=== PATIENT | male | born 1945 | race Caucasian/White ===

== ENCOUNTER 2020-06-14 08:55 | Outpatient (CLI) | payer MEDICARE, BC, SELFPAY ==
--- NOTE | ~2020-06-14 | XR_ITS ---
XR lumbar spine 2-3V DATE: 06/14/2020 09:16 INDICATION: Acute bilateral lower back pain TECHNIQUE: AP, lateral, coned lateral lumbosacral views COMPARISON: None FINDINGS: Normal alignment of the lumbar spine. No fracture or bone destruction. The lumbar pedicles are intact. Moderate degenerative disc disease at L1-2, L2-3, L3-4. Severe degenerative disease at L4-5 and L5-S1. The sacroiliac joints appear normal. IMPRESSION: Multilevel degenerative disc disease Reviewed, dictated and finalized at location A.
== END 2020-06-14 08:56 | disposition home or self-care (01) ==
LOC: ANHIMG 09:06
PROVIDERS: PCP Internal Medicine; Visit Provider Internal Medicine
DX: M51.36 Other intervertebral disc degeneration, lumbar region (principal)
CPT/HCPCS: 72100

== ENCOUNTER 2021-08-21 01:32 | Day surgery (SDC) | payer MEDICARE, BC, SELFPAY ==
[2021-08-20 12:12] VITALS: BMI 24.4
[2021-08-21] VITALS (9 sets, daily range): BP systolic 82–128; BP diastolic 49–79; PULSE 56–88; RESP 13–17; TEMP 36.5; O2SAT 97–100
--- NOTE | 2021-08-21 08:30 | ECG_ITS ---
Measurements Intervals [place] Rate: 59 P: 40 FL: 183 QRS: 21 QRSD: 100 T: 10 QT: 468 QTc: 466 Interpretive Statements SINUS BRADYCARDIA ATRIAL PREMATURE COMPLEX BORDERLINE T WAVE ABNORMALITY- INFERIOR LEADS BORDERLINE ECG Electronically Signed On 08-21-2021 10:58:46 BALANCE RECESSER by Destin Tatum D.O.
--- NOTE | 2021-08-21 08:30 | ECG_ITS ---
Measurements Intervals [place] Rate: 76 P: RI: 0 QRS: 35 QRSD: 95 T: 15 QT: 421 QTc: 475 Interpretive Statements ATRIAL FIBRILLATION VENTRICULAR PREMATURE COMPLEX BASELINE ARTIFACT- III ABNORMAL ECG Electronically Signed On 08-21-2021 9:07:33 DISTRIBUTION OPERATIONS SUPERVISOR by Destin Tatum D.O.
[2021-08-21 09:39] LABS: Anion Gap 9 mmol/L (8-16); Blood Urea Nitrogen 19 mg/dL (9-20); Calcium 9.3 mg/dL (8.4-10.2); Carbon Dioxide 27 mmol/L (22-30); Chloride 105 mmol/L (98-107); Estimated CRCL calculation 56 ml/min; Estimated Glomerular Filt Rate > 60; Glucose 91 mg/dL (65-110); Magnesium 2.1 mg/dL (1.6-2.3); Sodium 141 mmol/L (137-145)
[2021-08-21] MEDS: SODIUM CHLORIDE 0.9% IV 1,000 ML 30 ML IV CONT (09:42)
--- NOTE | 2021-08-21 10:19 | WPDMODSED ---
Moderate Sedation Note-Pt Data Patient Data Diagnosis: Recurrent atrial fibrillation Present Complaint: No complaints Procedure to be performed/Plan: DC cardioversion Allergies Allergy/AdvReac Type Severity Reaction Status Date / Time No Known Allergies Allergy Unverified 04/30/18 07:14 Home Medications Medication Instructions Recorded Confirmed Type levothyroxine 88 mcg tablet 88 mcg PO DAILY #90 tablet 07/21/19 08/21/21 Rx loteprednol etabonate drp 08/20/21 History omega 8-vec-cjo-fish oil [Fish Oil] 1,200 cap PO BID 08/20/21 08/20/21 History rivaroxaban [Xarelto] 20 mg PO DAILY 08/20/21 08/21/21 History simvastatin 20 mg PO DAILY 08/20/21 08/21/21 History sotalol 80 mg PO BID 08/20/21 08/21/21 History vit C,K-Am-zycyx-lutein-zeaxan 1 tablet PO BID 08/20/21 08/20/21 History [PreserVision AREDS-2] Current Medications: Active Medications Sodium Chloride (Normal Saline Iv) 1,000 mls @ 30 mls/hr IV CONT .Q24H LAXMI Last Admin: 08/21/21 09:42 Dose: 30 mls/hr Documented by: Sedation/Anesthesia: No previous sedation/anesthesia problems (including family history). [facility] Family History Family History (Updated 04/13/14 @ 07:13 by DOCTOR UNKNOWN) Mother Family history of Alzheimer's disease Father Family history of heart disease in male family member before age 55 Social History Social History Smoking status: Never smoker Alcohol intake: never Substance use: never Living arrangements: with family Spiritual care concerns: No Mod Sed Physical Exam Physical Exam Pre Procedural Exam: Normal: Appearance, Neck, Throat, Airway, Lungs, Heart Size, Heart Rate, Neuro Exam and Extremities and Variation: Heart Rhythm (Irregularly irregular) Hours since solid foods: 12 Hours since liquid intake: 12 Mallampati Classification: class II Internal Medicine - PN: Obj Da Vital Signs Vital Signs: Vital Signs - 24 hr 08/21/21 09:35 Temperature 36.5 C Pulse Rate 83 Respiratory Rate 13 Blood Pressure 120/79 Pulse Oximetry 99 Meds/Results Medications: Active Medications Generic Name Dose Route Start Last Admin Trade Name Freq PRN Reason Stop Dose Admin Sodium Chloride 1,000 mls @ 30 mls/hr 08/21/21 08:30 08/21/21 09:42 Normal Saline Iv IV CONT 30 mls/hr .Q24H LAXMI Administration Labs CBC & Chem 7: 08/21/21 09:09 Labs: Laboratory Results - last 24 hr 08/21/21 09:09 Sodium 141 Potassium 4.0 Chloride 105 Carbon Dioxide 27 Anion Gap 9 BUN 19 Creatinine 1.00 Estim Creat Clear Calc 56 Estimated GFR > 60 Glucose 91 Calcium 9.3 Magnesium 2.1 ASA Classification/Sedation ASA Classification/Sedation ASA Class: II Emergent: No Risks: Risks, benefits and alternatives explained and patient/family accepted plan for sedation. Patient re-evaluated immediately prior to sedation.
--- NOTE | 2021-08-21 10:38 | P.PCNCC_ITS ---
Cardiac Cath Procedure Note Date of procedure:: 08/21/21 Performing physician:: Omar Hammonds MD Indication:: Recurrent atrial fibrillation Brief clinical history:: This is a 76-year-old man with a history of atrial fibrillation maintained in sinus rhythm with sotalol. During recent office follow-up he was found to be in recurrent AFib. Echocardiogram did not show significant atrial dilation or structural abnormalities. He is chronically anticoagulated with Xarelto. Because of the AFib recurrence an attempt to restoring sinus rhythm electrically was recommended and scheduled for this morning. Procedure Procedure performed:: DC cardioversion Sedation/Medication given:: IV propofol in aliquots total dosage of 70 mg Estimated blood loss:: No blood loss Procedure note:: Patient was brought to the blood bank laboratory technician in the postabsorptive state he was placed in the supine position with defibrillator patches in the AP position. He was then sedated using the peripheral IV in the left upper e xtremity with using propofol and aliquots a total dosage of 70 mg was given. One synchronized countershock at 200 joules was then administered which restored sinus bradycardia. Findings:: As above Conclusion:: Successful uncomplicated DC cardioversion of atrial fib back to sinus rhythm/sinus bradycardia using 200 joules x1 shock Omar Hammonds MD [facility]
--- NOTE | 2021-08-21 11:29 | PC.NURSE ---
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
== END 2021-08-21 11:50 | disposition home or self-care (01) ==
PROVIDERS: PCP Internal Medicine; Visit Provider Specialist
PROC: 5A2204Z Restoration of Cardiac Rhythm, Single (ICD-10-PCS; principal; 2021-08-21 10:00)
DX: I48.0 Paroxysmal atrial fibrillation (principal); Z79.01 Long term (current) use of anticoagulants
CPT/HCPCS: 36415; 80048; 83735; 92960; J2704

== ENCOUNTER 2021-12-23 15:09 | Emergency (ER) | payer MEDICARE, BC, SELFPAY ==
[2021-12-23 16:02] VITALS: BP 119/62; PULSE 99; RESP 18; TEMP 37.5; O2SAT 98
--- NOTE | 2021-12-23 16:54 | ED.WOUNDLAC ---
HPI - Wound/Laceration General Chief Complaint: Wound/Laceration Stated Complaint: bleeding wound Time Seen by Provider: 12/23/21 16:46 History of Present Illness HPI narrative: 76-year-old male presents to the emergency room for evaluation of a bleeding wound to his right arm patient states that he is on Xarelto. Patient states that he removed a scab from his right bicep 5 days ago, and the wound has been bleeding intermittently ever since. Related Data Home Medications Medication Instructions Recorded Confirmed PreserVision AREDS-2 1 tablet PO BID 08/20/21 08/20/21 Xarelto 20 mg PO DAILY 08/20/21 08/21/21 loteprednol etabonate drp 08/20/21 omega 7-vjc-edl-fish oil [Fish Oil] 1,200 cap PO BID 08/20/21 08/20/21 simvastatin 20 mg PO DAILY 08/20/21 08/21/21 sotalol 80 mg PO BID 08/20/21 08/21/21 Allergies Allergy/AdvReac Type Severity Reaction Status Date / Time No Known Allergies Allergy Unverified 12/23/21 16:06 Review of Systems Review of Systems: CONSTITUTIONAL: Denies fever, chills, or sweats. EYES: Denies visual changes, redness, or discharge. ENT: Denies rhinorrhea, congestion, sore throat, or otalgia. CARDIOVASCULAR: Denies chest pain, palpitations, or edema. RESPIRATORY: Denies cough or dyspnea. GASTROINTESTINAL: Denies abdominal pain, nausea, vomiting, or diarrhea. GENITOURINARY: Denies dysuria or hematuria. SKIN: Bleeding wound to right arm MUSCULOSKELETAL: Denies back pain, joint pain, or myalgia. NEUROLOGIC: Denies headache, numbness, dizziness, or weakness. PSYCHIATRIC: Denies anxiety or depression. PMFSH Family History Family History Mother Family history of Alzheimer's disease Father Family history of heart disease in male family member before age 55 Social History Social History Smoking status: Never smoker Alcohol intake: never Substance use: never Spiritual care concerns: No Exam Narrative: GENERAL: Well-appearing, well-nourished, and in no acute distress. HEAD: Normocephalic, atraumatic. EYES: PERRLA and EOMI. ENT: Nares clear, no rhinorrhea or epistaxis. Mucous membranes moist. Oropharynx without tonsillar hypertrophy exudate or other lesions. Bilateral TMs [place] nonbulging NECK: Supple. No adenopathy or masses. No carotid bruits or JVD CHEST: Clear to auscultation. No respiratory distress. No wheezes rales or rhonchi HEART: Regular rate and rhythm. No murmur heard. Normal peripheral pulses. ABDOMEN: Soft, nontender, nondistended, normal active bowel sounds. EXTREMITIES: Normal range of motion. No edema. SKIN: 2 mm bleeding wound to the right upper extremity NEURO: No focal deficits. Alert and oriented x3. PSYCH: Normal mood and affect. Course Course Emergency Course: Surgicel applied to wound, and dressed with gauze and [place]. Patient tolerated procedure well. Patient given instructions to remove the Surgicel in approximately 3 days. Vital Signs Vital signs: Vital Signs Temperature 37.5 C 12/23/21 16:02 Pulse Rate 99 12/23/21 16:02 Respiratory Rate 18 12/23/21 16:02 Blood Pressure 119/62 12/23/21 16:02 Pulse Oximetry 98 12/23/21 16:02 Temperature 37.5 C 12/23/21 16:02 Pulse Rate 99 12/23/21 16:02 Respiratory Rate 18 12/23/21 16:02 Blood Pressure 119/62 12/23/21 16:02 Pulse Oximetry 98 12/23/21 16:02 Discharge Plan Discharge Clinical Impression: Avulsion of skin Patient Disposition: Home, Self-Care Condition: Stable Instructions: Antibiotic Form Prescriptions: No Action sotalol 80 mg tablet 80 mg PO BID RF: 0 simvastatin 20 mg tablet 20 mg PO DAILY RF: 0 loteprednol etabonate 0.5 % drops,suspension RF: 0 omega 1-lgx-rxq-fish oil [Fish Oil] 1,200 (144-216) mg Capsule 1,200 cap PO BID RF: 0 Xarelto 20 mg tablet 20 mg PO DAILY RF: 0 PreserVision AREDS-2 25
[2021-12-23] MEDS: CELLULOSE OXIDIZED 2 x 14 INCH 1 PKT XX (17:18)
== END 2021-12-23 17:58 | disposition home or self-care (01) ==
LOC: ANHED 17:00
PROVIDERS: Emergency Provider Nurse Practitioner Family; PCP Internal Medicine
DX: S41.101A Unspecified open wound of right upper arm, initial encounter (principal); I48.91 Unspecified atrial fibrillation; Z79.01 Long term (current) use of anticoagulants; X58.XXXA Exposure to other specified factors, initial encounter
CPT/HCPCS: 99282

== ENCOUNTER 2022-10-09 10:43 | Emergency (ER) | payer MEDICARE, BC, SELFPAY ==
--- NOTE | ~2022-10-09 | CT_ITS ---
EXAMINATION: CT abdomen pelvis wo con DATE: 10/09/2022 11:56 INDICATION: Hematuria. Left lower quadrant pain. TECHNIQUE: Computed tomography (CT) of the abdomen and pelvis was performed without intravenous contr ast. The dose-length product was 221.15 mGy-cm. Automated exposure control and iterative reconstructi on technique were employed. COMPARISON: CT dated 12/29/2011. FINDINGS: Borderline heart size. No significant pleural or pericardial effusion. There is calcified g ranulomas of the spleen. There is an accessory splenule. The liver, pancreas, adrenal glands and righ t kidney are unremarkable. There is a 3 mm nonobstructing left renal stone. There is a 1.9 cm left re nal cyst. Gallbladder is present. Nonobstructive bowel gas pattern. No free air or free fluid. No ure teral stones or hydronephrosis. There is a retroaortic left renal vein. Mild atherosclerosis of the a gloria without aneurysm. Colonic diverticulosis without evidence for diverticulitis. There is moderate lumbar spondylosis. IMPRESSION: 1. Nonobstructing 3 mm left renal stone. Reviewed, dictated and finalized at location L. IFIED HAND THERAPIST
[2022-10-09 11:02] VITALS: BP 109/84; PULSE 92; RESP 16; TEMP 36.9; O2SAT 98
--- NOTE | 2022-10-09 11:17 | ED.MALEGU ---
HPI - Male Genitourinary General Chief complaint: Urogenital-Male Stated complaint: hematuria Time Seen by Provider: 10/09/22 11:17 Source: patient Mode of arrival: ambulatory Limitations: no limitations History of Present Illness HPI Narrative: Patient is a 77-year-old male with a history of hypertension, hyperlipidemia, atrial fibrillation on chronic anticoagulation, nephrolithiasis, presenting for evaluation of left flank pain. Pain in the left flank has been intermittent in nature over the past 4 months. Patient initially thought the pain was musculoskeletal secondary to some heavy lifting and bending that he does on a daily basis. Patient denies any current flank pain or abdominal pain today. Patient states that he started to have bloody urine yesterday which has cleared this morning. Patient denies any fever, chills, dysuria. He denies urinary frequency or hesitancy. He denies abdominal distention or suprapubic pressure. Patient denies lightheadedness, dizziness or dyspnea. Related Data Home Medications Medication Instructions Recorded Confirmed loteprednol etabonate 0.5 % eye drp 08/20/21 drops,suspension omega 2-kbq-gzz-fish oil 1,200 mg 1,200 cap PO BID 08/20/21 08/20/21 (144 mg-216 mg) capsule (Fish Oil) rivaroxaban 20 mg tablet (Xarelto) 20 mg PO DAILY 08/20/21 08/21/21 simvastatin 20 mg tablet 20 mg PO DAILY 08/20/21 08/21/21 sotalol 80 mg tablet 80 mg PO BID 08/20/21 08/21/21 vit C 250 mg-vit E 90 mg-zinc 40 1 tablet PO BID 08/20/21 08/20/21 mg-copper 1 gi-yqwfdb-lmyvlb capsule (PreserVision AREDS-2) Allergies Allergy/AdvReac Type Severity Reaction Status Date / Time No Known Allergies Allergy Unverified 12/23/21 16:06 Review of Systems Review of Systems: CONSTITUTIONAL: Denies fever, chills, or sweats. ENT: Denies rhinorrhea, congestion, sore throat, or otalgia. CARDIOVASCULAR: Denies chest pain, palpitations, or edema. RESPIRATORY: Denies cough or dyspnea. GASTROINTESTINAL: Denies current abdominal pain, nausea, vomiting, or diarrhea. GENITOURINARY: Denies dysuria, reports hematuria SKIN: Denies rash or itching. MUSCULOSKELETAL: Denies back pain, joint pain, or myalgia. NEUROLOGIC: Denies headache, numbness, or weakness. [facility] Family History Family History Mother Family history of Alzheimer's disease Father Family history of heart disease in male family member before age 55 Social History Social History Smoking status: Never smoker Alcohol intake: never Substance use: never Living arrangements: with family Spiritual care concerns: No Exam Narrative: GENERAL: Awake, alert, conversant HEAD: Normocephalic, atraumatic. EYES: PERRLA and EOMI. ENT: Nares clear, no rhinorrhea or epistaxis. Mucous membranes moist. NECK: Supple. CHEST: No respiratory distress, breathing even and non labored HEART: Regular rate, sinus rhythm ABDOMEN:Non distended, non tender throughout, no reproducible flank tenderness bilaterally. No left lower quadrant tenderness on exam. No rebound, rigidity or guarding. EXTREMITIES: Normal range of motion. No edema. SKIN: Warm, dry, no rash. NEURO:No focal deficits. Alert and oriented x3 Course Vital Signs Vital signs: Vital Signs Temperature 36.9 C 10/09/22 11:02 Pulse Rate 92 10/09/22 11:02 Respiratory Rate 16 10/09/22 11:02 Blood Pressure 109/84 10/09/22 11:02 Pulse Oximetry 98 10/09/22 11:02 Oxygen Delivery Room Air 10/09/22 11:02 Temperature 36.9 C 10/09/22 11:02 Pulse Rate 92 10/09/22 11:02 Respiratory Rate 16 10/09/22 11:02 Blood Pressure 109/84 10/09/22 11:02 Pulse Oximetry 98 10/09/22 11:02 Oxygen Delivery Room Air 10/09/22 11:02 MDM - Male Genitourinary MDM Narrative Medical decision making narrative: Medical decision making narrative: -Presentation: Patient presenting
[2022-10-09] MEDS: SODIUM CHLORIDE 0.9% IV 1,000 ML 999 ML IV CONT (11:33)
[2022-10-09 11:52] LABS: Appearance Urine Slightly Cloudy (Clear); Bilirubin Urine Negative (Negative); Blood Urine 3+ (Negative); Color Urine Yellow (Yellow); Glucose Urine UA Negative (Negative); Ketones Urine Negative (Negative); Leukocyte Esterase Ur Negative LEU/UL (Negative); Nitrate Urine Negative (Negative); Protein Urine Trace mg/dL (Negative); Specific Grav Ur 1.025 (1.001-1.035); Urobilinogen Urine 0.2 mg/dL (<2.0); pH Urine 5.5 (5.0-9.0)
[2022-10-09 11:54] LABS: Basophils Absolute Auto 0.1 K/mm3 (0.0-0.1); Basophils Percent Auto 0.9 % (0.2-1.2); Eosinophils Absolute Auto 0.3 K/mm3 (0-0.3); Eosinophils Percent Auto 3.1 % (0-4.4); Hematocrit 48.2 % (42.0-52.0); Hemoglobin 16.2 g/dL (14.0-18.0); Immature Granulocyte Absolute 0.04 K/mm3 (0.00-0.031); Immature Granulocyte Percent A 0.5 % (0-0.5); Lymphocytes Absolute Auto 1.82 K/mm3 (0.9-3.2); Lymphocytes Percent Auto 20.7 % (18.3-44.2); Mean Corpuscular HGB Conc 33.6 g/dl (32-36); Mean Corpuscular Hemoglobin 32.3 pg (26-34); Mean Platelet Volume 9.4 fl (7.4-10.4); Monocytes Absolute Auto 1.1 K/mm3 (0.1-0.6); Monocytes Percent Auto 12.3 % (2.6-8.5); Neutrophils Absolute Auto 5.5 K/mm3 (1.3-6.7); Neutrophils Percent Auto 62.5 % (45.5-73.1); Platelet Count Result 167 k/mm3 (150-375); Red Blood Count 5.02 M/mm3 (4.6-6.20); Red Cell Distribution Width 14.2 % (11.5-14.5); White Blood Count 8.8 K/mm3 (4.5-10.0)
[2022-10-09 12:01] LABS: Budding Yeast Urine Present /hpf; Mucus Urine Rare /lpf; RBC Urine >75 /hpf (0-2); Squamous Epithelial Cell Urine Rare /hpf (Few)
[2022-10-09 12:06] LABS: Alanine Aminotransferase 24 U/L (6-50); Albumin Level 4.6 g/dL (3.5-5.1); Alkaline Phosphatase 73 U/L (38-126); Anion Gap 8 mmol/L (8-16); Aspartate Amino Transferase 34 U/L (17-59); Bilirubin,Total 1.2 mg/dL (0.2-1.3); Blood Urea Nitrogen 22 mg/dL (9-20); Calcium 8.9 mg/dL (8.4-10.2); Carbon Dioxide 24 mmol/L (22-30); Chloride 108 mmol/L (98-107); Estimated CRCL calculation 67 ml/min; Estimated Glomerular Filt Rate > 60; Glucose 97 mg/dL (65-110); Lipase 316 U/L (23-300); Potassium 4.3 mmol/L (3.4-5.0); Sodium 140 mmol/L (137-145)
[2022-10-09 12:23] LABS: Add Urine Microscopic? YES
== END 2022-10-09 13:37 | disposition home or self-care (01) ==
PROVIDERS: Emergency Provider Emergency Medicine; PCP Internal Medicine
DX: N20.0 Calculus of kidney (principal); R31.9 Hematuria, unspecified; I10 Essential (primary) hypertension; E78.5 Hyperlipidemia, unspecified; I48.20 Chronic atrial fibrillation, unspecified; Z79.01 Long term (current) use of anticoagulants; Z87.442 Personal history of urinary calculi
CPT/HCPCS: 36415; 74176; 80053; 81001; 83690; 85025; 96360; 99284; J7030

== ENCOUNTER 2023-09-21 00:46 | Day surgery (SDC) | payer MEDICARE, BC, SELFPAY ==
[2023-09-07 10:38] VITALS: BMI 24.4
--- NOTE | 2023-09-18 08:29 | SUR.PREOP ---
Patient called regarding upcoming procedure. Reviewed preop instructions, appointment times, and procedure prep.
--- NOTE | 2023-09-18 15:29 | PM.HPGS ---
History of Present Illness History of Present Illness Consent: Risks, benefits, and alternatives have been discussed and questions answered. Patient agrees to proceed with procedure. Chief complaint: hx colon polyps Narrative: Varun Mullins is a 78 year old male was referred for colon cancer screening. He has history of having had polyps removed, he had several hyperplastic polyps removed 6 years ago. he has also had tenderness in the left lower quadrant of his abdomen for the past couple weeks. There has been no change in his bowel habits. Review of Systems Review of Systems: All systems reviewed & are unremarkable except as noted in HPI and below PMFSH Family History Family History Mother Family history of Alzheimer's disease Father Family history of heart disease in male family member before age 55 Social History Social History Smoking status: Never smoker Alcohol intake: never Substance use: never Substance use type: does not use Living arrangements: with family Spiritual care concerns: No Meds Home Medications and Allergies Home Medications Medication Instructions Recorded Confirmed Type levothyroxine 88 mcg tablet 88 mcg PO DAILY #90 tabs 07/21/19 09/07/23 Rx omega 0-qwk-oaf-fish oil 1,200 mg 1,200 cap PO BID 08/20/21 09/07/23 History (144 mg-216 mg) capsule (Fish Oil) rivaroxaban 20 mg tablet (Xarelto) 20 mg PO DAILY 08/20/21 09/07/23 History simvastatin 20 mg tablet 20 mg PO DAILY 08/20/21 09/07/23 History vit C 250 mg-vit E 90 mg-zinc 40 1 tablet PO BID 08/20/21 09/07/23 History mg-copper 1 mx-cjbnor-jaafxt capsule (PreserVision AREDS-2) metoprolol succinate 100 mg 100 mg PO DAILY 09/07/23 09/07/23 History tablet,extended release 24 hr Allergies Allergy/AdvReac Type Severity Reaction Status Date / Time No Known Allergies Allergy Verified 09/21/23 10:34 Exam Resp: Auscultation: clear to auscultation bilaterally Cardio: Rate: regular rate Rhythm: regular rhythm GI: GI Palp: Yes Soft to palpation and No Tenderness to palpation present (GI) Assessment and Plan Assessment and plan (1) Colon cancer screening: Code(s): Z12.11 - Encounter for screening for malignant neoplasm of colon Status: Acute Assessment and Plan: Colonoscopy with possible biopsy or polypectomy or cautery or injection of substances.
[2023-09-21 10:36] VITALS: BP 123/67; PULSE 93; RESP 18; TEMP 36.5; O2SAT 99
[2023-09-21] MEDS: LACTATED RINGERS 1,000 ML 150 ML IV CONT (10:46)
--- NOTE | 2023-09-21 11:21 | P.PNAN_ITS ---
Anes - Initial Pre Proc Eval Procedure: Operation Date: 09/21/23 11:30 Proposed Procedures p Colonoscopy - Bryan Grove MD Date/Time: 09/21/23 11:21 Surgeon: Bryan Grove MD Pre Op Diagnosis: hx colon polyps Patient Data Age: 78 Gender: M Height: 1.75 m Weight: 74 kg Last Vital Signs Temp 97.7 F 09/21/23 10:36 Pulse 93 09/21/23 10:36 Resp 18 09/21/23 10:36 BP 123/67 09/21/23 10:36 Pulse Ox 99 09/21/23 10:36 O2 Del Method Room Air 09/21/23 10:36 Allergies Allergy/AdvReac Type Severity Reaction Status Date / Time No Known Allergies Allergy Verified 09/21/23 10:34 Home Medications Medication Instructions Recorded Confirmed Type levothyroxine 88 mcg tablet 88 mcg PO DAILY #90 tabs 07/21/19 09/07/23 Rx omega 7-jar-vvj-fish oil 1,200 mg 1,200 cap PO BID 08/20/21 09/07/23 History (144 mg-216 mg) capsule (Fish Oil) rivaroxaban 20 mg tablet (Xarelto) 20 mg PO DAILY 08/20/21 09/07/23 History simvastatin 20 mg tablet 20 mg PO DAILY 08/20/21 09/07/23 History vit C 250 mg-vit E 90 mg-zinc 40 1 tablet PO BID 08/20/21 09/07/23 History mg-copper 1 jl-sxarsq-kjciim capsule (PreserVision AREDS-2) metoprolol succinate 100 mg 100 mg PO DAILY 09/07/23 09/07/23 History tablet,extended release 24 hr Patient hx anesthesia problems: none Family hx anesthesia problems: none Results Review: All pre-operative results and documents have been reviewed as part of the pre- operative evaluation. [facility] Family History Family History Mother Family history of Alzheimer's disease Father Family history of heart disease in male family member before age 55 Social History Social History Smoking status: Never smoker Alcohol intake: never Substance use: never Substance use type: does not use Living arrangements: with family Spiritual care concerns: No Anes - Eval Final PreProcedure Day of Procedure 09/21/23 11:21 Patient weight: normal Heart: irregular rhythm Lungs: clear to auscultation Airway: Mallampati scale class III Neurological: alert and oriented Last oral intake: >/= 8 hours ASA classification: III Emergent: no Anesthetic plan: proceed Anesthesia type and monitoring: general GIVS and standard monitoring Results Review: All pre-operative results and documents have been reviewed as part of the pre- operative evaluation. Informed Consent: The patient's anesthetic plan and its attendant risks and benefits were discussed with the patient/family/POA. Questions were solicited and answers provided to the satisfaction of the patient/family/POA.
[2023-09-21 12:03] VITALS: BP 87/53; PULSE 96; RESP 17; O2SAT 97
[2023-09-21 12:13] VITALS: BP 98/53; PULSE 92; RESP 15; O2SAT 96
[2023-09-21 12:23] VITALS: BP 101/64; PULSE 89; RESP 18; O2SAT 96
== END 2023-09-21 12:51 | disposition home or self-care (01) ==
PROVIDERS: PCP Internal Medicine; Referring Provider Physician Assistant Medical; Visit Provider Internal Medicine Gastroenterology
PROC: 0DJD8ZZ Inspection of Lower Intestinal Tract, Via Natural or Artificial Opening Endoscopic (ICD-10-PCS; CPT 45378; principal; 2023-09-21 11:30)
DX: Z12.11 Encounter for screening for malignant neoplasm of colon (principal); K63.5 Polyp of colon; D12.3 Benign neoplasm of transverse colon; K57.30 Diverticulosis of large intestine without perforation or abscess without bleeding; Z79.01 Long term (current) use of anticoagulants; Z82.49 Family history of ischemic heart disease and other diseases of the circulatory system
CPT/HCPCS: 45385; 45380; 88305; J2704; J7120

== ENCOUNTER 2023-12-30 07:23 | Outpatient (CLI) | payer MEDICARE, BC, SELFPAY ==
--- NOTE | ~2023-12-30 | XR_ITS ---
Cervical Spine: AP, lateral, open-mouth views Clinical History: Pain Findings: The normal lordotic curve is maintained. No fracture or subluxation. There is extensive kamaljit dging anterior osteophytes extending from C3 through T1. Intervertebral disc spaces are relatively we ll-preserved. There are mild facet joint degenerative changes. Pre-vertebral soft tissues are unremar kable. Impression: Extensive DISH of the cervical spine. Reviewed, dictated and finalized at location M. Impression: Extensive DISH of the cervical spine.
== END 2023-12-30 07:24 | disposition home or self-care (01) ==
PROVIDERS: PCP Internal Medicine; Visit Provider Internal Medicine
DX: M48.12 Ankylosing hyperostosis [Forestier], cervical region (principal)
CPT/HCPCS: 72040